=== PATIENT | male | born 1985 | race Two or more races ===

== ENCOUNTER 2017-05-23 08:22 | Emergency (ER) | payer BC, OTHER ==
[~2017-05-23] VITALS: Ht 180.3 cm; Wt 118.0 kg
[2017-05-23 10:31] VITALS: BP 158/92
[2017-05-23] MEDS ORDERED: FAMOTIDINE 20MG/2ML VIAL IV STA (10:52)
[2017-05-23] MEDS ORDERED: SODIUM CHLORIDE 0.9% 1,000 ML IV ONE (10:52)
[2017-05-23 11:29] LABS: BASOPHILS % 0.4 % (0.0-2.0); EOSINOPHILS % 0.2 % (0.0-5.0); LYMPHOCYTES % 10.3 % (20.0-50.0); MEAN CORPUSCULAR HEMOGLOBIN 28.9 pg (28.0-32.0); MEAN CORPUSCULAR VOLUME 85.1 fL (80.0-94.0); MEAN PLATELET VOLUME 8.6 fl (7.4-10.4); MONOCYTES % 6.9 % (2.0-8.0); NEUTROPHILS % 82.2 % (40.0-76.0); PLATELET 177 x1000/uL (130-400); RED BLOOD CELL COUNT 5.52 mill/uL (4.7-6.1)
[2017-05-23 11:32] LABS: CLARITY URINE CLEAR (CLEAR); COLOR URINE DARK YELLOW (YELLOW); GLUCOSE URINE NEGATIVE (NEGATIVE); KETONES URINE TRACE (NEGATIVE); LEUKOCYTE ESTERASE URINE TRACE (NEGATIVE); NITRITE URINE NEGATIVE (NEGATIVE); OCCULT BLOOD URINE 3+ (NEGATIVE); PH URINE 5.5 (4.5-8.0); PROTEIN URINE 2+ (NEGATIVE); SPECIFIC GRAVITY URINE 1.041 (1.005-1.030); UROBILINOGEN URINE 0.2 E.U./dL (0.2-1.0)
[2017-05-23 11:48] LABS: CHLORIDE 107 mEq/L (98-107)
[2017-05-23 11:59] LABS: CARBON DIOXIDE 22 mEq/L (21-32)
== END 2017-05-23 13:13 | disposition home or self-care (01) ==
LOC: ER 08:42
DX: K52.9 Noninfective gastroenteritis and colitis, unspecified (principal); R03.0 Elevated blood-pressure reading, without diagnosis of hypertension
CPT/HCPCS: 36415; 80053; 81001; 83690; 85025; 96361; 96374; 99284; J3490; J7030

== ENCOUNTER 2019-07-16 22:28 | Inpatient (IN) | payer BC ==
[~2019-07-16] VITALS: Ht 180.3 cm; Wt 134.3 kg
[2019-07-17 00:01] LABS: BASOPHILS % 0.6 % (0.0-2.0); EOSINOPHILS % 2.3 % (0.0-5.0); HEMATOCRIT. 48.1 % (42.0-52.0); HEMOGLOBIN. 16.2 g/dL (14.0-18.0); LYMPHOCYTES % 26.2 % (20.0-50.0); MEAN CORPUSCULAR HEMOGLOBIN 28.9 pg (28.0-32.0); MEAN CORPUSCULAR VOLUME 85.7 fL (80.0-94.0); MEAN PLATELET VOLUME 8.4 fl (7.4-10.4); MONOCYTES % 10.8 % (2.0-8.0); NEUTROPHILS % 60.1 % (40.0-76.0); PLATELET 240 x1000/uL (130-400); RED BLOOD CELL COUNT 5.61 mill/uL (4.7-6.1); RED CELL DISTRIBUTION WIDTH 13.3 % (11.6-14.6)
[2019-07-17 00:08] LABS: CHLORIDE 108 mEq/L (98-107)
[2019-07-17 00:12] LABS: ETHANOL BLOOD < 10 mg/dL
[2019-07-17] MEDS ORDERED: MAGNESIUM/ALUMINUM HYDROXIDE/SIMETHICONE 30ML UDC PO PRN (00:30)
[2019-07-17] MEDS ORDERED: MORPHINE SULFATE 2 MG/ML CPJ (NOT FOR IM USE) IV PRN (00:30)
[2019-07-17] MEDS ORDERED: ACETAMINOPHEN 325MG TABLET PO PRN (00:30)
[2019-07-17] MEDS ORDERED: ONDANSETRON HCL 4MG/2ML INJ IV PRN (00:30)
[2019-07-17] MEDS ORDERED: CLONIDINE 0.1MG TABLET PO PRN (00:30)
[2019-07-17] MEDS ORDERED: HYDROCODONE/ACETAMINOPHEN 5/325MG TABLET PO PRN (00:30)
[2019-07-17] MEDS ORDERED: DOCUSATE SODIUM 100MG CAPSULE PO PRN (00:30)
[2019-07-17 03:10] VITALS: BP 143/80
[2019-07-17 03:24] LABS: *AMPHETAMINES SCREEN URINE NEGATIVE (NEGATIVE); *BARBITURATES SCREEN URINE NEGATIVE (NEGATIVE); *BENZODIAZEPINES SCREEN URINE NEGATIVE (NEGATIVE); *COCAINE SCREEN URINE NEGATIVE (NEGATIVE); METHADONE URINE SCREEN NEGATIVE (NEGATIVE)
[2019-07-17 03:25] LABS: CANNABINOID URINE SCREEN NEGATIVE (NEGATIVE); OPIATES URINE SCREEN NEGATIVE (NEGATIVE); PHENCYCLIDINE URINE SCREEN NEGATIVE (NEGATIVE)
[2019-07-17 08:00] VITALS: BP 133/85
[2019-07-17] MEDS ORDERED: PNEUMOCOCCAL 23-VAL P-SAC VAC 0.5 ML IM ONE (09:00)
[2019-07-17] MEDS ORDERED: ASPIRIN 81MG EC TABLET PO SCH (09:00)
[2019-07-17] MEDS ORDERED: ENOXAPARIN 40MG/0.4ML SYR SUBCUT SCH (09:00)
[2019-07-17] MEDS ORDERED: INFLUENZA VIRUS VACCINE(AFLURIA) 0.5ML SYR IM ONE (09:00)
[2019-07-17] MEDS ORDERED: ASPIRIN 81MG TABLET PO SCH (09:15)
[2019-07-17] MEDS ORDERED: REGADENOSON 0.4 MG/5 ML IV NR (10:00)
[2019-07-17 12:00] VITALS: BP 141/93
[2019-07-17 12:12] LABS: CREATINE KINASE 136 IU/L (39-308)
[2019-07-17 12:13] LABS: T4 FREE 1.07 ng/dL (0.76-1.46)
[2019-07-17 12:14] LABS: CREATINE KINASE MB FRACTION < 1.0 ng/mL (0.5-3.6)
[2019-07-17] MEDS ORDERED: REGADENOSON 0.4 MG/5 ML IV ONE (12:34)
[2019-07-17 16:00] VITALS: BP 145/100
[2019-07-17 16:22] LABS: CREATINE KINASE 123 IU/L (39-308)
[2019-07-17 16:23] LABS: CREATINE KINASE MB FRACTION < 1.0 ng/mL (0.5-3.6)
[2019-07-17] MEDS ORDERED: HYDRALAZINE HCL 50MG TABLET PO NR (20:00)
[2019-07-17 20:01] VITALS: BP 137/92
[2019-07-17 20:02] VITALS: BP 137/92
== END 2019-07-17 20:45 | disposition home or self-care (01) | DRG 313 ==
LOC: ER 22:37 → 8WST 07-17 00:15 → EDBEDREQ 07-17 00:17 → EDBEDREQTM 07-17 00:17 → ENRESERV 07-17 02:29
PROVIDERS: ADMIT Hospitalist; ATTEND Hospitalist
DX: R07.89 Other chest pain (principal); I10 Essential (primary) hypertension; E78.5 Hyperlipidemia, unspecified; F14.10 Cocaine abuse, uncomplicated; F10.10 Alcohol abuse, uncomplicated; Y90.9 Presence of alcohol in blood, level not specified; F17.200 Nicotine dependence, unspecified, uncomplicated
CPT/HCPCS: 36415; 71045; 78452; 80053; 80305; 80320; 82550; 82553; 83880; 84439; 84443; 84484; 85025; 93005; 93017; 93306; 93970; 96372; 99285; A9500; J1650; J2785; G0480

== ENCOUNTER 2020-10-08 03:12 | Emergency (ER) | payer BC, OTHER ==
[~2020-10-08] VITALS: Ht 180.3 cm; Wt 105.0 kg
[2020-10-08] MEDS ORDERED: ONDANSETRON HCL 4MG/2ML INJ IV STA (03:33)
[2020-10-08] MEDS ORDERED: MORPHINE SULFATE 4 MG/ML CPJ (NOT FOR IM USE) IV STA (03:33)
[2020-10-08] MEDS ORDERED: SODIUM CHLORIDE 0.9% 1,000 ML IV ONE (03:45)
[2020-10-08 03:52] LABS: BASOPHILS % 0.4 % (0.0-2.0); EOSINOPHILS % 0.5 % (0.0-5.0); HEMATOCRIT. 48.3 % (42.0-52.0); HEMOGLOBIN. 16.9 g/dL (14.0-18.0); LYMPHOCYTES % 19.3 % (20.0-50.0); MEAN CORPUSCULAR HEMOGLOBIN 30.3 pg (28.0-32.0); MEAN CORPUSCULAR VOLUME 86.4 fL (80.0-94.0); MEAN PLATELET VOLUME 8.4 fl (7.4-10.4); MONOCYTES % 11.1 % (2.0-8.0); NEUTROPHILS % 68.7 % (40.0-76.0); PLATELET 211 x1000/uL (130-400); RED BLOOD CELL COUNT 5.58 mill/uL (4.7-6.1); RED CELL DISTRIBUTION WIDTH 13.5 % (11.6-14.6)
[2020-10-08 03:59] LABS: CHLORIDE 104 mEq/L (98-107)
[2020-10-08 04:00] LABS: CLARITY URINE CLEAR (CLEAR); COLOR URINE DARK YELLOW (YELLOW); KETONES URINE TRACE (NEGATIVE); LEUKOCYTE ESTERASE URINE TRACE (NEGATIVE); NITRITE URINE NEGATIVE (NEGATIVE); OCCULT BLOOD URINE 3+ (NEGATIVE); PH URINE 6.5 (4.5-8.0); PROTEIN URINE 2+ (NEGATIVE); SPECIFIC GRAVITY URINE 1.024 (1.005-1.030)
[2020-10-08] MEDS ORDERED: ONDA4TAB5 MT (05:02)
[2020-10-08] MEDS ORDERED: IBUP-2029 MT (05:02)
[2020-10-08 05:24] VITALS: BP 135/84
== END 2020-10-08 05:32 | disposition home or self-care (01) ==
LOC: ER 03:14
DX: N23 Unspecified renal colic (principal); Z98.84 Bariatric surgery status
CPT/HCPCS: 36415; 74176; 80053; 81003; 83605; 83690; 85025; 93005; 96361; 96374; 96375; 99285; J2270; J2405; J7030

== ENCOUNTER 2025-06-03 23:57 | Emergency (ER) | payer BC ==
[~2025-06-03] VITALS: Ht 180.3 cm; Wt 113.0 kg
[~2025-06-03 23:57] MED LIST: IBUP-1455 MT; ONDA4TAB5 MT
[2025-06-04 00:01] VITALS: O2SAT 98
[2025-06-04] MEDS ORDERED: AMOX-494 MT (00:18)
[2025-06-04] MEDS ORDERED: HYDR-4001 MT (00:18)
[2025-06-04 00:20] VITALS: TEMP 36.9; O2SAT 98
[2025-06-04 00:23] VITALS: BP 161/119; PULSE 96; RESP 16
[2025-06-04] MEDS: HYDROCODONE/ACETAMINOPHEN 5/325MG TABLET PO ONE (00:23)
== END 2025-06-04 00:32 | disposition home or self-care (01) ==
LOC: ER 23:57
DX: K08.89 Other specified disorders of teeth and supporting structures (principal); I10 Essential (primary) hypertension; Z79.891 Long term (current) use of opiate analgesic; Z79.899 Other long term (current) drug therapy
CPT/HCPCS: 99283